=== PATIENT | female | born 1990 | race Caucasian/White ===

== ENCOUNTER → 2025-07-19 | Outpatient (CLI) | payer OTHER, SELFPAY ==
[2025-07-19 16:48] LABS: Follicle Stimulating Hormone 36.1 mIU/mL; Free T3 2.8 pg/mL (2.18-3.98); Vitamin D,25 Hydroxy 58.0 ng/mL (30-100)
[2025-07-21 04:07] LABS: PROGESTERONE 0.1 ng/mL (.)
== END | disposition home or self-care (01) ==
PROVIDERS: Referring Provider Nurse Practitioner Women's Health; Visit Provider Nurse Practitioner Women's Health
DX: R53.81 Other malaise (principal); E28.8 Other ovarian dysfunction; E03.8 Other specified hypothyroidism; E55.9 Vitamin D deficiency, unspecified
CPT/HCPCS: 36415; 82306; 82627; 82670; 83001; 84144; 84403; 84443; 84481; 82626